=== PATIENT | female | born 1955 | race African-American/Black ===

== ENCOUNTER 2023-12-29 12:16 | Outpatient (CLI) | payer MEDICARE, SELFPAY ==
[2023-12-29 13:01] LABS: Basophils Percent Auto 0.4 % (0.2-1.2); Eosinophils Absolute Auto 0.1 K/mm3 (0-0.3); Eosinophils Percent Auto 1.8 % (0-4.4); Hematocrit 42.7 % (37.0-47.0); Immature Granulocyte Absolute 0.04 K/mm3 (0.00-0.031); Immature Granulocyte Percent A 0.8 % (0-0.5); Lymphocytes Absolute Auto 0.96 K/mm3 (0.9-3.2); Lymphocytes Percent Auto 18.9 % (18.3-44.2); Mean Corpuscular HGB Conc 30.4 g/dl (32-36); Mean Corpuscular Hemoglobin 25.7 pg (26-34); Mean Corpuscular Volume 84.6 fl (80-100); Mean Platelet Volume 10.2 fl (7.4-10.4); Monocytes Absolute Auto 0.4 K/mm3 (0.1-0.6); Monocytes Percent Auto 7.3 % (2.6-8.5); Neutrophils Absolute Auto 3.6 K/mm3 (1.3-6.7); Neutrophils Percent Auto 70.8 % (45.5-73.1); Platelet Count Result 176 k/mm3 (150-375); Red Blood Count 5.05 M/mm3 (4.2-5.4); Red Cell Distribution Width 14.2 % (11.5-14.5); White Blood Count 5.1 K/mm3 (4.5-10.0)
[2023-12-29 13:15] LABS: Alanine Aminotransferase 15 U/L (6-35); Albumin Level 4.6 g/dL (3.5-5.1); Alkaline Phosphatase 107 U/L (38-126); Anion Gap 6 mmol/L (4-12); Aspartate Amino Transferase 25 U/L (14-36); Bilirubin,Total 0.6 mg/dL (0.2-1.3); Blood Urea Nitrogen 11 mg/dL (7-17); Carbon Dioxide 27 mmol/L (22-30); Chloride 108 mmol/L (98-107); Cholesterol 174 mg/dL (0-200); Estimated Glomerular Filt Rate > 60; Glucose 120 mg/dL (65-110); HDL Direct 45 mg/dL; Sodium 141 mmol/L (137-145); Triglycerides 134 mg/dL (<150)
[2023-12-29 13:29] LABS: LDL Cholesterol Direct 111 mg/dL
[2023-12-29 13:50] LABS: Thyroid Stimulating Hormone 0.746 uIU/mL (0.465-4.680)
== END 2023-12-29 12:17 | disposition home or self-care (01) ==
PROVIDERS: PCP Family Medicine; Visit Provider Family Medicine
DX: E78.2 Mixed hyperlipidemia (principal); I10 Essential (primary) hypertension; E03.9 Hypothyroidism, unspecified; E11.9 Type 2 diabetes mellitus without complications
CPT/HCPCS: 36415; 80053; 80061; 83036; 84443; 85025

== ENCOUNTER 2025-06-22 12:24 | Outpatient (CLI) | payer MEDICARE, SELFPAY ==
--- OUTSIDE RECORDS SUMMARY | 2025-06-22 12:31 | XMS_ITS ---
Author Organization Unknown ENCOUNTERS Encounter Performer Location Date Diagnosis Diagnosis Status Outpatient Abel Keller [facility] [address] [place] [address] [id number] Outpatient Christina Pickard [facility] [address] [place] [address] [id number] REYNA *Note: Encounters from your own facility or health system may be excluded. Allergies, Adverse Reactions, Alerts Allergen Type Severity Identification Date Medications Name Date Quantity Days Supplied GPI Number
--- OUTSIDE RECORDS SUMMARY | 2025-06-22 12:31 | XMS_ITS | Patient Health Record ---
Author Organization [facility] Address [address] [place] [address] Care Team Providers Care Strategic Communications Manager Name Role Phone Walker (retired) Raquel PINEDA Primary Care Provid er Unavailable JAZMYNE LUCERO, ISAAC Unavailable Reason For Referral No Information Plan Of Treatment No Information Insurance Providers Payer Name Payer Address Payer Phone Subscriber Number Group Number Insured Name Patient Relationship to Insured Coverage Start Date Coverage End Date Medicare-I L Medicare [address] ROBERT VILLAGOMEZ [id number] Katheryn Cruz Self - patient is the insured
--- OUTSIDE RECORDS SUMMARY | 2025-06-22 12:31 | XMS_ITS | Encounter Summary ---
Author Organization [facility] Address [address] [place] [address] Care Team Providers Care Assembler Unit Name Role Phone Raquel Rod DO Primary Care Provider [phone] Juan Ramon Nicole MD Unavailable [phone] Encounter Details Date Type Department Care Team (Latest Contact Info) Description 07/27/2018 Abstract [facility] , Generic Neto, Social History Tobacco Use Types Packs/Day Years Used Date Smoking Tobacco: Never Assessed Comments Unknown Sex and Gender Information Value Date Recorded Sex Assigned at Not on file Legal Sex Female 11:24 PM CDT Gender Identity Not on file Sexual Orientation Not on file documented as of this encounter Plan of Treatment Not on file documented as of this encounter Visit Diagnoses Not on filedocumented in this encounter Care Teams Assembler Unit Relationship Specialty Start Date End Date Raquel Rod DO [address] [place] [address] PCP - General 06/28/13 Juan Ramon Nicole MD [address] [place] [address] OPHTHALMOLOGY 04/24/23 documented as of this encounter
--- OUTSIDE RECORDS SUMMARY | 2025-06-22 12:31 | XMS_ITS | Clinical Summary ---
Author Organization [facility] Address [address] [place] [address] Care Team Providers Care Senior Integration Architect Name Role Phone MarcelXavier Chung PINEDA Primary Care Provider [phone] Juan Ramon Nicole MD Unavailable [phone] Allergies No known active allergies Medications Calcium Carbonate-Vit D-Min (CALCIUM 600 + MINERALS) 600-200 MG-UNIT Tab 01/19/2018 Active Cholecalciferol (VITAMIN D) 1000 UNIT tablet 01/19/2018 Active lovastatin (MEVACOR) 40 MG tabletIndication s:Hypercholester olemia,Type 2 diabetes mellitus without complication, unspecified whether medical collections representative insulin use ([facility]) TAKE 1 TABLET(40 MG) BY MOUTH DAILY WITH SUPPER 90 tablet 1 06/24/2023 Active metoprolol tartrate (LOPRESSOR) 50 MG tabletIndication s:Hypertension, unspecified type TAKE 1 TABLET(50 MG) BY MOUTH EVERY 12 HOURS 180 tablet 1 06/24/2023 Active lisinopril (PRINIVIL) 40 MG tabletIndication s:Type 2 diabetes mellitus without complication, unspecified whether medical collections representative insulin use ([facility]),Hyperte nsion, unspecified type TAKE 1 TABLET(40 MG) BY MOUTH DAILY 90 tablet 09/24/2023 Active metFORMIN (GLUCOPHAGE) 1000 MG tabletIndication s:Type 2 diabetes mellitus without complication, unspecified whether medical collections representative insulin use ([facility]) TAKE 1 TABLET(1000 MG) BY MOUTH TWICE DAILY 180 tablet 09/24/2023 Active lisinopril (PRINIVIL) 40 MG tabletIndication s:Type 2 diabetes mellitus without complication, unspecified whether fdc insulin use ([facility]),Hyperte nsion, unspecified type TAKE 1 TABLET(40 MG) BY MOUTH DAILY 90 tablet 09/24/2023 Active amLODIPine (NORVASC) 10 MG tabletIndication s:Hypertension, unspecified type TAKE 1 TABLET(10 MG) BY MOUTH DAILY 90 tablet 09/24/2023 Active amLODIPine (NORVASC) 10 MG tabletIndication s:Hypertension, unspecified type TAKE 1 TABLET(10 MG) BY MOUTH DAILY 90 tablet 09/24/2023 Active Active Problems Problem Noted Date Diagnosed Date History of colon polyps 03/27/2023 Obesity 02/25/2023 Eczema 09/19/2014 Generalized osteoarthritis of multiple sites 04/2013 Hypercholesterolemia 06/28/2013 Hypertension 06/28/2013 Overview (04/18/2019): Onset: 03/13/2006 Type 2 diabetes mellitus ([facility]) 06/28 Overview (04/18/2019): Onset: 09/12/2005 Resolved Problems Problem Noted Date Diagnosed Date Resolved Date Screening for colon cancer 02/25/2023 0 03/02/2023 Preventative health care 04/09/2022 Encounter for screening mamm ogram for malignant neoplasm of breast 04/09/2022 03/02/2023 Preventative health care 01/18/202108/2023 Encounter for preventive health examination 11/30/2012 06/01/2020 Immunizations Immunization Administration Dates Next Due Hepatitis A 03/18/2004,09/15/2003 Td (Tenivac) preservative free 09/21/2003 Tdap (Generic) 06/29/2013 Family History Medical History Relation Comments Hypertension Mother Diabetes Sister Relation Status Comments Mother Sister Social History Tobacco Use Types Packs/Day Years Used Date Smoking Tobacco: Never Smokeless Tobacco: Never Alcohol Use Standard Drinks/Week Comments No 0 (1 standard drink = 0.6 oz pur e alcohol) AUDIT-C Answer Date Recorded Frequency of Alcohol Consumption Never 04/18/2019 Average Number of Drinks Not on file 019 Frequency of Binge Drinking Not on file 03/22 PHQ-2 Answer Date Recorded Patient Health Questionnaire-2 Score 0 02/25/2023 Comments No Sex and Gender Information Value Date Recorded Sex Assigned at Not on file Legal Sex Female 11:24 PM CDT Gender Identity Not on file Sexual Orientation Not on file Occupation Industry Job Start Date Job End Date HOMEMAKER Not on file Not on file Not on file Last Filed Vital Signs Vital Sign Reading Time Taken Comments Blood Pressure 160/84 02/25/2023 7:52 AM CDT Pulse 65 02/25/2023 7:52 AM CDT Temperature - - Respiratory Rate - - Oxygen Saturation - - Inhaled Oxygen Concentration - - Weight 87.1 kg (192 lb) 02/25/2023 7:52 AM CDT Height 167.6 cm (5' 6) 02/25/2023 7:52 AM CDT Body Mass Index 30.99 02/25/2023 7:52 AM CDT Plan of Treatment Health Maintenance Due Date Last Done Comments Kidney Health Evaluation 1957 Diabetes: Retinopathy Eye Exam 1975 Hepatitis C 1975 Pneumococcal Vaccine: 50+ Years (1 of 2 - PCV) 1976 Zoster Vaccines (1 of 2) 2007 Dexa Scan (General) 2022 DTaP, Tdap and Td Vaccines (2 - Td or Tdap) 06/29/2023 06/29/2013, 09/21/2003 Hemoglobin A1C 08/27/2023 02/25/2023, 07, 07/18/2021, Additional history exists Lipid Panel 02/26/2024 02/25/2023, 0603/2023, 04/09/2022, Additional history exists Annual Medicare Wellness Visit 02/27/2024 02/25/2023 Mammogram Screening 03/25/2025 03/25/2023, 06/28/2013, 06/17/2013 COVID-19 Vaccine ( season) 2025 02/09/2021, 01/19/2021 RSV Immunization or 60+ Years (1 - 1-dose 75+ series) 2032 Colorectal Cancer Screening Colonoscopy (10 Years) 03/20/2033 03/20/2023, 01/27/2008, 01/20/2008 Meningococcal B Vaccine Aged Out No l onger eligible based on patient's age to complete this topic Meningococcal Vaccine Aged Out No adonis sherri eligible based on patient's age to complete this topic RSV Immunizations Under 20 Months Aged Out No longer eligible based on patient's age to complete this topic Procedures Procedure Name Priority Date/Time Associated Diagnosis Comments MG SCREENING W ANSON RUT DIGI Routine 03/25/2023 10:54 AM CDT Encounter for screening mammogram for malignant neoplasm of breast COLONOSCOPY GENERIC (SCAN ORDER) Routine 03/20/2023 LIPID PANEL Routine 02/25/2023 8:29 AM CDT Type 2 diabetes mellitus without complication, without long-term current use of insulin Hypercholesterolemia Primary hypertension HEMOGLOBIN, GLYCOSYLATED Routine 02/25/2023 8:28 AM CDT Type 2 diabetes mellitus without complication, without long-term current use of insulin from Last 3 Months or Most Recently Relevant to Health Maintenance Results * MG SCREENING W ANSON RUT DIGI (03/25/2023 10:54 AM CDT) Anatomical Region Laterality Modality Breast Bilateral Mammography 03/25/2023 3:05 PM CDT Narrative 03/25/2023 3:10 PM CDT Examination: Screening bilateral mammogram Exam Date: 03/25/2023 10:31 AM Clinical history: Routine screening. Reestablish baseline. Comparison: 06/28/2013, 06/17/2013 Technique: Digital screening mammography of both breasts was performed. Breast tomosynthesis acquisitions were obtained and reviewed. This study was read with the assistance of a computer-aided detection system. Tissue density: There are scattered areas of fibroglandular density. Findings: No suspicious masses, malignant appearing calcifications, skin thickening or other abnormalities are present. Scattered benign appearing calcifications are noted. No significant change from the prior exam. IMPRESSION: No suspicious mammographic findings. Recommendation: 1. Routine Screening, Bilateral Assessment: ACR BI-RADS 2 - BENIGN FINDING(S) Ordered By: XAVIER CHILEL Interpreted By: Guy Palafox MD, 03/25/2023 3:05 PM Xavier Chilel DO MAMMO Final Result * COLONOSCOPY (03/20/2023) Doc Bfma Scanned SCANNING Final Result [facility] ONBASE * (ABNORMAL) LIPID PANEL (02/25/2023 8:29 AM CDT) CHOLESTEROL 182 0 - 199 MG/DL [facility] TRIGLYCERIDES 90 0.00 - 150.00 MG/DL [facility] Comment: NCEP REFERENCE VALUES FOR TRIGLYCERIDES: NORMAL: <150 MG/DL BORDERLINE HIGH: 150 - 199 MG/DL HIGH: 200 - 499 MG/DL VERY HIGH: >/= 500 MG/DL HDL 46 >40 MG/DL [facility] LDL (CALCULATED) 117(H) 0 - 99 MG/DL [facility] Comment: CUTOFF VALUES RECOMMENDED BY THE NATIONAL CHOLESTEROL EDUCATION PROGRAM: DESIRABLE: CHOLESTEROL <200 MG/DL LDL <100 MG/DL BORDERLINE: CHOLESTEROL 200-239 MG/DL LDL 101-159 MG/DL HIGHER RISK: CHOLESTEROL >240 MG/DL LDL >160 MG/DL, HDL <40 MG/DL NON HDL CHOLESTEROL 136 NO REFERENCE RANGE MG/DL [facility] Comment: A REASONABLE GOAL FOR NON-HDL CHOLESTEROL IS ONE THAT IS 30 MG/DL HIGHER THAN THE LDL CHOLESTEROL GOAL. CHOL/HDL RATIO 4.0 0.0 - 5.0 . [facility] Comment: IS PATIENT FASTING?->YES ON JANUARY 13, 2023, [facility] CHANGED THE EQUATION FOR CALCULATING ESTIMATED LOW-DENSITY LIPOPROTEIN-CHOLESTEROL (LDL-C) FROM THE FRIEDEWALD EQUATION TO THE JAROD/VINCENZO EQUATION. THIS NEW EQUATION IS ONLY VALID FOR LIPID PANELS WITH TRIGLYCERIDES < 400 MG/DL. STUDIES HAVE DEMONSTRATED THAT THIS NEW EQUATION WILL IMPROVE THE ACCURACY OF LDL-C, ESPECIALLY IN SCENARIOS WHEN LDL-C CONCENTRATIONS ARE RELATIVELY LOW (< 100 MG/DL), TRIGLYCERIDES ARE ELEVATED, OR PATIENT IS NON-FASTING. REFERENCES: - MAX OLIVERA, STEVENSON THAYER, KANDI BERKOWITZ, VAL MACIAS, VAL ERIC, FRANCE MURPHY, AND KEYANA JONES. 2013. COMPARISON OF A NOVEL METHOD VS THE FRIEDEWALD EQUATION FOR ESTIMATING LOW-DENSITY LIPOPROTEIN CHOLESTEROL LEVELS FROM THE STANDARD LIPID PROFILE. [place]: THE J[employer]RNAL [employer] 310 (19): 2061-68. - ROSA V, INOCENTE J, PATRICK A, MELISSA M, AKI R, FELIX E, KATHERINE RS, KAREN SR, JAROD SS. FASTING VERSUS NONFASTING AND LOW-DENSITY LIPOPROTEIN CHOLESTEROL ACCURACY. CIRCULATION. 2018 SEP 22;137(1):10-19. 02/25/2023 8:29 AM CDT 02/26/2023 6:25 AM CDT Xavier Chilel DO LABORATORY Final Result Performing Organization Address City/[facility]/ZIP Co de Phone Number [employer] [address] [place] [address], * HEMOGLOBIN, GLYCOSYLATED (02/25/2023 8:28 AM CDT) HGB A1C 6.1 4.2 - 6.5 % [facility] 02/25/2023 8:28 AM CDT Xavier Chilel DO LABORATORY Final Result Performing Organization Address City/[facility] Co de Phone Number [facility] [address] from Last 3 Months or Most Recently Relevant to Health Maintenance Insurance MEDICARE MEDICARE Care Teams Senior Integration Architect Relationship Specialty Start Date End Date Xavier Chilel DO [address] [place] [address] PCP - General 06/28/13 Juan Ramon Nicole MD [address] [place] [address] OPHTHALMOLOGY 04/24/23
[2025-06-22 12:53] LABS: Hemoglobin A1C 6.2 % (<5.7)
[2025-06-22 13:02] LABS: Alanine Aminotransferase 14 U/L (6-35); Albumin Level 4.3 g/dL (3.5-5.1); Alkaline Phosphatase 112 U/L (38-126); Anion Gap 9 mmol/L (4-12); Aspartate Amino Transferase 21 U/L (14-36); Bilirubin,Total 0.5 mg/dL (0.2-1.3); Blood Urea Nitrogen 12 mg/dL (7-17); Calcium 9.6 mg/dL (8.4-10.2); Carbon Dioxide 21 mmol/L (22-30); Chloride 109 mmol/L (98-107); Estimated Glomerular Filt Rate > 60; Glucose 105 mg/dL (65-110); Potassium 4.1 mmol/L (3.4-5.0); Sodium 139 mmol/L (137-145); Total Protein 7.7 g/dL (6.3-8.2)
[2025-06-22 13:11] LABS: MALB Creatinine Ratio 35.5 mg/g (0-30)
== END 2025-06-22 12:25 | disposition home or self-care (01) ==
LOC: ANHLAB 12:29
PROVIDERS: PCP Family Medicine; Visit Provider Physician Assistant
DX: E11.9 Type 2 diabetes mellitus without complications (principal); I10 Essential (primary) hypertension
CPT/HCPCS: 36415; 80053; 82043; 83036